=== PATIENT | female | born 1955 | race Caucasian/White ===

== ENCOUNTER 2018-10-08 | Emergency (ER) | payer OTHER ==
[~2018-10-08] VITALS: Ht 154.9 cm; Wt 58.5 kg
[2018-10-08] MEDS ORDERED: CLONAZEPAM0.5 MG (00:12)
[2018-10-08] MEDS ORDERED: ZOFRAN4 MG/5 ML PO (06:15)
[2018-10-08] MEDS ORDERED: PEPCID40 MG PO (06:15)
[2018-10-08] MEDS ORDERED: LEVSIN0.125 MG PO (06:15)
== END 2018-10-08 14:00 | disposition home or self-care (01) ==
LOC: ER
DX: R10.84 Generalized abdominal pain (principal)